=== PATIENT | male | born 1945 | race Caucasian/White ===

== ENCOUNTER 2020-09-22 11:48 | Inpatient (IN) | payer MEDICARE, OTHER ==
[~2020-09-22] VITALS: Ht 162.6 cm; Wt 67.6 kg
[2020-09-22] MEDS ORDERED: IV NORMAL SALINE 1000 ML BAG IV ONE (12:00)
[2020-09-22] MEDS ORDERED: PANT40TA2 PO (12:48)
[2020-09-22] MEDS ORDERED: CRAN425C6 PO (12:48)
[2020-09-22] MEDS ORDERED: QUER1POW MC (12:48)
[2020-09-22] MEDS ORDERED: THIA100T74 PO (12:48)
[2020-09-22] MEDS ORDERED: MAGN400O6 PO (12:48)
[2020-09-22] MEDS ORDERED: ASPI81TA31 PO (12:48)
[2020-09-22] MEDS ORDERED: CLOP75TA15 PO (12:48)
[2020-09-22] MEDS ORDERED: OMEG-166 PO (12:48)
[2020-09-22] MEDS ORDERED: ATOR10TA PO (12:48)
[2020-09-22] MEDS ORDERED: NA P133E RC (12:48)
[2020-09-22] MEDS ORDERED: ASCO500P18 PO (12:48)
[2020-09-22] MEDS ORDERED: CHOL10002 PO (12:48)
[2020-09-22] MEDS ORDERED: MULT-594 PO (12:48)
[2020-09-22] MEDS ORDERED: HYDR-501 PO (12:48)
[2020-09-22] MEDS ORDERED: AMLO10TA59 PO (12:48)
[2020-09-22] MEDS ORDERED: LISI-603 PO (12:48)
[2020-09-22] MEDS ORDERED: DOCU-141 PO (12:48)
[2020-09-22] MEDS ORDERED: ACET-2154 PO (12:48)
[2020-09-22] MEDS ORDERED: CARV6.252 PO (12:48)
[2020-09-22] MEDS ORDERED: HYDR-4384 PO ×2 (12:48)
[2020-09-22] MEDS ORDERED: ACET-73 PO (12:48)
[2020-09-22 13:28] LABS: BASOPHILS % (AUTO) 0.2 % (0.0-2.0); EOSINOPHILS % (AUTO) 0.1 % (0.0-7.0); HEMATOCRIT 32.3 % (36.7-47.1); HEMOGLOBIN 10.1 g/dL (12.5-16.3); LYMPHOCYTES # (AUTO) 0.9 K/uL (20.0-40.0); LYMPHOCYTES % (AUTO) 4.4 % (20.5-51.5); MEAN CORPUSCULAR HEMOGLOBIN 26.6 uug (23.8-33.4); MEAN CORPUSCULAR HGB CONC 31 g/dL (32.5-36.3); MEAN CORPUSCULAR VOLUME 85.6 fL (73.0-96.2); MONOCYTES # (AUTO) 1.1 K/uL (2.0-10.0); MONOCYTES % (AUTO) 5.1 % (0.0-11.0); NEUTROPHILS # (AUTO) 18.9 K/uL (1.8-8.9); NEUTROPHILS % (AUTO) 90.2 % (38.5-71.5); PLATELET COUNT (AUTO) 469 K/uL (152-348); RED BLOOD CELL COUNT(AUTO) 3.78 MIL/uL (4.06-5.63)
[2020-09-22] MEDS ORDERED: CEFTRIAXONE 2 G in IV DEXTROSE 5% 100 ML IV ONE (13:45)
[2020-09-22] MEDS ORDERED: AZITHROMYCIN IV 500 MG in IV DEXTROSE 5% 250 ML IV ONE (13:45)
[2020-09-22 13:53] LABS: CREATININE 0.9 mg/dL (0.6-1.3)
[2020-09-22 13:57] LABS: BILIRUBIN,DIRECT 0.2 mg/dL (0.0-0.2); BILIRUBIN,TOTAL 0.3 mg/dL (0.2-1.0); TOTAL PROTEIN, SERUM 8.1 g/dL (6.4-8.2)
[2020-09-22] MEDS ORDERED: DEXAMETHASONE SOD PHOSPHATE 4 MG INJ IV ONE (14:00)
--- NOTE | 2020-09-22 14:05 | NUR ---
ATTEMPTED TO PLACE NG TUBE WAS NOT ABLE TO GET IN. PATIENT AWAKE AND ALERT. TOLERATED PROCEDURE. DR ANGEL MADE AWARE.
[2020-09-22] MEDS ORDERED: DEXAMETHASONE SOD PHOSPHATE 10 MG INJ ONE (14:18)
[2020-09-22] MEDS ORDERED: AZITHROMYCIN 500MG/ D5W 250ML IVPB **ER PYXIS ONLY IV ONE (14:19)
[2020-09-22] MEDS ORDERED: ONDANSETRON 4 MG/2 ML VIAL IV PRN (15:15)
[2020-09-22] MEDS ORDERED: ACETAMINOPHEN 650 MG SUPP.RECT RC PRN (15:15)
[2020-09-22] MEDS ORDERED: ONDANSETRON ODT 4 MG TAB.RAPDIS SL PRN (15:15)
[2020-09-22] MEDS ORDERED: ALBUTEROL SULFATE 8 GM HFA.AER.AD IH PRN (15:15)
[2020-09-22] MEDS ORDERED: IV NS 1000 ML 1,000 ML IV PRN (15:30)
[2020-09-22] MEDS ORDERED: VANCOMYCIN IV 1,000 MG in IV DEXTROSE 5% 250 ML IV ONE (19:30)
--- NOTE | 2020-09-22 19:38 | NUR ---
CALLED FLOOR SPOKE WITH NURSE ANGÉLICA ROOM NOT AVAILABLE WILL CALL WHEN READY.
--- NOTE | 2020-09-22 21:05 | NUR ---
CALLED MACHINE ASSISTANT VIVIANE FOR ASSISTANCE ON TRANSFER PATIENT TO TELE FLOOR.
--- NOTE | 2020-09-22 21:15 | NUR ---
Pt. admitted to [facility] , under care of [facility], Brenda Reyna, ROTARY FURNACE TENDER [employer] completed
[2020-09-22 21:20] VITALS: BP 122/58
--- NOTE | 2020-09-22 21:20 | NUR ---
RECEIVED PT FROM ER VIA GURNEY. PT IN NO ACUTE DISTRESS. IV INTACT. SAFETY AND COMFORT PROVIDED.INTERMEDIATE ASSESSMENT DONE. NO OPEN WOUND FOR THE PT . BUT PT HAS REDNESS,SCRATCH ON PELVIC AREA. PT ON 15L NONREBREATHER MASK. ASSESSMENT PROCESS AND CARE PLAN INITIATED. SAFETY AND COMFORT PROVIDED. WILL CONTINUE TO MONITOR.
[2020-09-22] MEDS ORDERED: ALBUMIN HUMAN 5% 250 ML IV ONE (22:15)
[2020-09-22] MEDS ORDERED: PIPERACILLIN/TAZOBACTAM/D5W 50 ML IV ONE (23:09)
[2020-09-22] MEDS ORDERED: ALBUMIN HUMAN 5% 250 ML ONE (23:11)
[2020-09-23] VITALS: BP 101/71
--- NOTE | 2020-09-23 01:00 | NUR ---
ZOSYN MEDICATION GOT FROM PSYCH SPECIALIST BUT PENDING IN EMAR SO I DIDN'T GIVE IT. WILL NOTIFY INCOMING NURSE AND PHARMACIST.
[2020-09-23 04:30] VITALS: BP 105/71
--- NOTE | 2020-09-23 06:53 | NUR ---
PT SLEPT INTERMITTENTLY. PT IN NO ACUTE DISTRESS. PT IN SINUS RHYTHM. PT ON NONREBREATHER MASK FOR 15L. PT TURNED AND REPOSITIONED. PRESCRIBED MEDICATION GIVEN AND PT TOLERATED IT WELL. SAFETY AND COMFORT PROVIDED. WILL ENDORSE TO INCOMING NURSE FOR CONTINUITY OF CARE
[2020-09-23 07:08] LABS: BASOPHILS % (AUTO) 0.1 % (0.0-2.0); HEMATOCRIT 30.1 % (36.7-47.1); HEMOGLOBIN 9.6 g/dL (12.5-16.3); LYMPHOCYTES # (AUTO) 1.4 K/uL (20.0-40.0); LYMPHOCYTES % (AUTO) 9.5 % (20.5-51.5); MEAN CORPUSCULAR HEMOGLOBIN 27.4 uug (23.8-33.4); MEAN CORPUSCULAR HGB CONC 32 g/dL (32.5-36.3); MEAN CORPUSCULAR VOLUME 86.1 fL (73.0-96.2); MONOCYTES # (AUTO) 0.4 K/uL (2.0-10.0); MONOCYTES % (AUTO) 2.7 % (0.0-11.0); NEUTROPHILS # (AUTO) 13.4 K/uL (1.8-8.9); NEUTROPHILS % (AUTO) 87.7 % (38.5-71.5); PLATELET COUNT (AUTO) 386 K/uL (152-348); RED BLOOD CELL COUNT(AUTO) 3.49 MIL/uL (4.06-5.63); WHITE BLOOD COUNT (AUTO) 15.3 K/uL (3.6-10.2)
--- NOTE | 2020-09-23 07:20 | NUR ---
Called pharmacy for zosyn of the pt. Zosyn iv was given by clothing room supervisor and when i was about to scanEMAR shows pending so I didn"t give it. endorse to incoming nurse.
[2020-09-23] MEDS ORDERED: ALBUTEROL SULFATE 2.5 MG/3 ML NEBU NEB PRN (07:30)
--- NOTE | 2020-09-23 07:45 | NUR ---
RECEIVED PATIENT AWAKE IN BED. PATIENT ON 15L NON-REBREATHER. IV ON RIGHT HAND 22G PATENT AND INTACT. PATIENT IN NO ACUTE DISTRESS AT THE MOMENT. SINUS RHYTHM ON THE TELE MONITOR. SAFETY PRECAUTIONS IN PLACE. WILL CONTINUE TO MONITOR
[2020-09-23 08:08] LABS: BILIRUBIN,TOTAL 0.3 mg/dL (0.2-1.0); CREATININE 0.8 mg/dL (0.6-1.3); POTASSIUM 4.3 mmol/L (3.5-5.1); TOTAL PROTEIN, SERUM 7.6 g/dL (6.4-8.2)
[2020-09-23 09:00] VITALS: BP 106/68
[2020-09-23] MEDS: AMLODIPINE 10 MG TABLET PO SCH (09:00)
[2020-09-23] MEDS ORDERED: PANTOPRAZOLE SODIUM 40 MG TABLET.DR PO SCH (09:00)
--- NOTE | 2020-09-23 09:00 | NUR ---
NORVASC HELD DUE TO PATIENTS BLOOD PRESSURE OF 106/68.
[2020-09-23] MEDS: PIPERACILLIN SODIUM/TAZOBACTAM 3.375 G in IV DEXTROSE 5% 50 ML IV SCH ×3 (09:37→19:51)
[2020-09-23] MEDS: CHOLECALCIFEROL 1,000 UNIT TABLET PO SCH (09:38)
[2020-09-23] MEDS: THIAMINE HCL 100 MG TABLET PO SCH (09:38)
[2020-09-23] MEDS: ASPIRIN 81 MG TAB.CHEW PO SCH (09:38)
[2020-09-23] MEDS: CARVEDILOL 6.25 MG TABLET PO SCH ×2 (09:38→17:15)
[2020-09-23] MEDS: PANTOPRAZOLE SODIUM 40 MG TABLET.DR PO SCH (09:38)
[2020-09-23] MEDS: CLOPIDOGREL 75 MG TABLET PO SCH (09:38)
[2020-09-23] MEDS: ASCORBIC ACID 500 MG TABLET PO SCH (09:39)
[2020-09-23] MEDS: DOCUSATE SODIUM 100 MG CAPSULE PO SCH ×2 (09:39→17:15)
[2020-09-23 10:29] LABS: *BILIRUBIN,URIN NEGATIVE (NEGATIVE); *BLOOD, URINE NEGATIVE (NEGATIVE); *CLARITY,URINE CLEAR (CLEAR); *COLOR,URINE YELLOW (YELLOW); *KETONES,URINE NEGATIVE (NEGATIVE); *UROBILINOGEN,URINE 0.2 E.U./dl (NORMAL); LEUKOCYTE ESTERASE ,URINE NEGATIVE (NEGATIVE); NITRITE, URINE NEGATIVE (NEGATIVE); PH,URINE 5.5 (5.0-8.0); UGLUCOSE NEGATIVE (NEGATIVE)
[2020-09-23 10:49] LABS: *URINE TOTAL PROTEIN RANDOM 65.2 mg/dL (<150/24HR)
[2020-09-23 11:00] VITALS: BP 104/69
--- NOTE | 2020-09-23 12:56 | NUR ---
JEREMÍAS MENON NOTIFIED OF PATIENT'S LOW ALBUMIN OF 1.6; ADVISED TO REPLENISH WITH ONE MORE BAG OF ALBUMIN.
--- NOTE | 2020-09-23 12:57 | NUR ---
PATIENT SATURATE 91% ON ROOM AIR, HOWEVER COMPLAINS OF SHORTNESS OF BREATH WITHOUT O2. FACE MASK UTILIZED AT 6L. ANALYTICAL LEAD [facility] NOTIFIED.
[2020-09-23] MEDS ORDERED: ALBUMIN HUMAN 5% 250 ML IV ONE (13:30)
[2020-09-23] MEDS ORDERED: ALBUMIN HUMAN 25% 50 ML IV ONE (14:00)
[2020-09-23] MEDS: AZITHROMYCIN IV 500 MG in IV DEXTROSE 5% 250 ML IV SCH (15:49)
[2020-09-23 16:00] VITALS: BP 108/69
[2020-09-23] MEDS: VANCOMYCIN IV 1,000 MG in IV DEXTROSE 5% 250 ML IV SCH (17:01)
--- NOTE | 2020-09-23 17:30 | NUR ---
ATTEMPTED TO COLLECT SPUTUM SAMPLE FROM PATIENT, HOWEVER PATIENT STATES HE IS UNABLE TO PRODUCE SPUTUM AT THE MOMENT. WILL ENDORSE TO ONCOMING SHIFT.
--- NOTE | 2020-09-23 18:46 | NUR ---
PATIENT STABLE THROUGHOUT SHIFT. TOLERATED MEDICATIONS WITHOUT COMPLICATIONS. VITAL SIGNS WITHIN NORMAL. O2 TITRATED DOWN TO 6L FACE MASK. PATIENT SATURATING AT 95%. SINUS RHYTHM ON THE MONITOR. NO DISTRESS NOTED. WILL ENDORSE TO ONCOMING SHIFT.
--- NOTE | 2020-09-23 19:30 | NUR ---
RECEIVED PT AWAKE,ALERT AND ORIENTEDX3. PT ON FACE MASK 6L. IV INTACT. PT ON HEART MONITOR AND SINUS RHYTHM PT TOLERATED IT WELL. PT IN NO ACUTE DISTRESS. SAFETY AND COMFORT PROVIDED. WILL CONTINUE TO MONITOR.
[2020-09-23 19:37] LABS: BACTERIA,URINE FEW /HPF (NONE SEEN); RBC,URINE 0-3 /HPF (0-3); SQUAMOUS EPITHELIAL CELL,UR NONE SEEN /HPF (NONE SEEN); URIC ACID CRYSTALS,URINE MODERATE /HPF (NONE SEEN); WBC,URINE 0-3 /HPF (0-3)
[2020-09-23 20:00] VITALS: BP 109/65
[2020-09-23] MEDS: ATORVASTATIN 10 MG TABLET PO SCH (20:15)
[2020-09-23] MEDS: ACETAMINOPHEN 325 MG TABLET PO PRN (20:28)
[2020-09-23] MEDS ORDERED: PIPERACILLIN SODIUM/TAZOBACTAM 3.375 G in IV DEXTROSE 5% 50 ML IV SCH (23:11)
[2020-09-24] VITALS: BP 112/62
[2020-09-24] MEDS: PIPERACILLIN SODIUM/TAZOBACTAM 3.375 G in IV DEXTROSE 5% 50 ML IV SCH ×4 (01:21→20:58)
[2020-09-24 04:00] VITALS: BP 104/68
[2020-09-24] MEDS: PANTOPRAZOLE SODIUM 40 MG TABLET.DR PO SCH (07:01)
[2020-09-24 07:56] LABS: CREATININE 0.8 mg/dL (0.6-1.3); PHOSPHOROUS 3.1 mg/dL (2.5-4.9); POTASSIUM 3.8 mmol/L (3.5-5.1)
[2020-09-24 08:07] LABS: BASOPHILS % (AUTO) 0.1 % (0.0-2.0); EOSINOPHILS % (AUTO) 0.2 % (0.0-7.0); HEMOGLOBIN 9.5 g/dL (12.5-16.3); LYMPHOCYTES # (AUTO) 1.5 K/uL (20.0-40.0); LYMPHOCYTES % (AUTO) 12.4 % (20.5-51.5); MEAN CORPUSCULAR HEMOGLOBIN 27.3 uug (23.8-33.4); MEAN CORPUSCULAR HGB CONC 32 g/dL (32.5-36.3); MEAN CORPUSCULAR VOLUME 86.3 fL (73.0-96.2); MONOCYTES # (AUTO) 0.7 K/uL (2.0-10.0); NEUTROPHILS # (AUTO) 9.9 K/uL (1.8-8.9); NEUTROPHILS % (AUTO) 81.3 % (38.5-71.5); PLATELET COUNT (AUTO) 374 K/uL (152-348); RED BLOOD CELL COUNT(AUTO) 3.47 MIL/uL (4.06-5.63); WHITE BLOOD COUNT (AUTO) 12.2 K/uL (3.6-10.2)
--- NOTE | 2020-09-24 08:11 | NUR ---
PT SLEPT INTERMITTENTLY. PT IN NO ACUTE DISTRESS. PRESCRIBED MEDICATION GIVEN AND PT TOLERATED IT WELL. TYLENOL PRN GIVEN PT REQUEST . IV INTACT. PT ON NONREBREATHER MASK. PT TURNED AND REPOSITIONED. SAFETY AND COMFORT PROVIDED. WILL ENDORSE TO INCOMING NURSE FOR CONTINUITY OF CARE.
[2020-09-24] MEDS: CHOLECALCIFEROL 1,000 UNIT TABLET PO SCH (09:00)
[2020-09-24] MEDS: AMLODIPINE 10 MG TABLET PO SCH (09:00)
[2020-09-24] MEDS: ASCORBIC ACID 500 MG TABLET PO SCH (09:00)
[2020-09-24] MEDS: CARVEDILOL 6.25 MG TABLET PO SCH ×2 (09:00→17:00)
[2020-09-24] MEDS: CLOPIDOGREL 75 MG TABLET PO SCH (09:00)
[2020-09-24] MEDS: ASPIRIN 81 MG TAB.CHEW PO SCH (09:00)
[2020-09-24] MEDS: DOCUSATE SODIUM 100 MG CAPSULE PO SCH ×2 (09:00→16:49)
[2020-09-24] MEDS: THIAMINE HCL 100 MG TABLET PO SCH (09:00)
[2020-09-24 10:11] LABS: ABG HCO3 20.7 mmol/L; ABG PCO2 31.9 mmHg (35.0-45.0); ABG PH 7.429 (7.350-7.450); ABG SITE RIGHT RADIAL; ABG TOTAL HEMOGLOBIN 10.3 G/dL (13.5-18.0); COHb 0.8 % (0.5-1.5); MetHb 0.3 % (0.0-1.5); O2Hb 97.2 % (94.0-97.0)
[2020-09-24 11:16] VITALS: BP 111/71
[2020-09-24] MEDS: VANCOMYCIN IV 1,000 MG in IV DEXTROSE 5% 250 ML IV SCH (12:53)
[2020-09-24 15:42] VITALS: BP 115/72
[2020-09-24] MEDS: AZITHROMYCIN IV 500 MG in IV DEXTROSE 5% 250 ML IV SCH (16:39)
[2020-09-24 20:00] VITALS: BP 104/63
[2020-09-24] MEDS: ATORVASTATIN 10 MG TABLET PO SCH (21:12)
[2020-09-25] VITALS: BP 103/61
[2020-09-25] MEDS: PIPERACILLIN SODIUM/TAZOBACTAM 3.375 G in IV DEXTROSE 5% 50 ML IV SCH ×4 (02:21→20:59)
[2020-09-25 04:00] VITALS: BP 101/73
--- NOTE | 2020-09-25 06:00 | NUR ---
Awaiting vanco through levels prior to administration. Called lab and notified that no one was available to draw and awaiting for inkjet operator to arrive for morning labs. Will attempt to draw prior
[2020-09-25] MEDS: PANTOPRAZOLE SODIUM 40 MG TABLET.DR PO SCH (06:58)
--- NOTE | 2020-09-25 07:30 | NUR ---
Received patient resting in bed awake and alert. No sign of distress noted. Patient denies any pain. Safety precautions in place with call light an belongings within reach. Will continue to monitor.
[2020-09-25] MEDS: AMLODIPINE 10 MG TABLET PO SCH (09:00)
[2020-09-25] MEDS: CARVEDILOL 6.25 MG TABLET PO SCH ×2 (09:00→17:07)
[2020-09-25] MEDS: ASPIRIN 81 MG TAB.CHEW PO SCH (10:03)
[2020-09-25] MEDS: DOCUSATE SODIUM 100 MG CAPSULE PO SCH ×2 (10:03→17:04)
[2020-09-25] MEDS: CHOLECALCIFEROL 1,000 UNIT TABLET PO SCH (10:04)
[2020-09-25] MEDS: ASCORBIC ACID 500 MG TABLET PO SCH (10:04)
[2020-09-25] MEDS: CLOPIDOGREL 75 MG TABLET PO SCH (10:04)
[2020-09-25] MEDS: THIAMINE HCL 100 MG TABLET PO SCH (10:04)
[2020-09-25 11:00] VITALS: BP 151/77
[2020-09-25] MEDS ORDERED: ALBUTEROL SULFATE 2.5 MG/3 ML NEBU NEB SCH (13:00)
[2020-09-25 14:04] LABS: BASOPHILS % (AUTO) 0.1 % (0.0-2.0); EOSINOPHILS # (AUTO) 0.1 K/uL (0.0-0.7); EOSINOPHILS % (AUTO) 1.6 % (0.0-7.0); HEMATOCRIT 32.6 % (36.7-47.1); HEMOGLOBIN 10.5 g/dL (12.5-16.3); LYMPHOCYTES # (AUTO) 2.3 K/uL (20.0-40.0); LYMPHOCYTES % (AUTO) 25.4 % (20.5-51.5); MEAN CORPUSCULAR HEMOGLOBIN 27.2 uug (23.8-33.4); MEAN CORPUSCULAR HGB CONC 32 g/dL (32.5-36.3); MEAN CORPUSCULAR VOLUME 84.1 fL (73.0-96.2); MONOCYTES # (AUTO) 0.6 K/uL (2.0-10.0); MONOCYTES % (AUTO) 6.7 % (0.0-11.0); NEUTROPHILS # (AUTO) 6.1 K/uL (1.8-8.9); NEUTROPHILS % (AUTO) 66.2 % (38.5-71.5); PLATELET COUNT (AUTO) 413 K/uL (152-348); RED BLOOD CELL COUNT(AUTO) 3.88 MIL/uL (4.06-5.63); WHITE BLOOD COUNT (AUTO) 9.2 K/uL (3.6-10.2)
[2020-09-25 14:08] LABS: CREATININE 0.7 mg/dL (0.6-1.3); PHOSPHOROUS 3.7 mg/dL (2.5-4.9); POTASSIUM 3.5 mmol/L (3.5-5.1)
[2020-09-25] MEDS: VANCOMYCIN IV 750 MG in IV DEXTROSE 5% 250 ML IV SCH (15:45)
[2020-09-25 16:09] VITALS: BP 153/98
[2020-09-25] MEDS: AZITHROMYCIN IV 500 MG in IV DEXTROSE 5% 250 ML IV SCH (17:04)
[2020-09-25 20:00] VITALS: BP 127/73
--- NOTE | 2020-09-25 20:08 | NUR ---
Patient is resting in bed. All medications given as ordered. Safety precautions in place with call light and belongings within reach. Will endorse to oncoming nurse.
[2020-09-25] MEDS: ALBUTEROL SULFATE 2.5 MG/3 ML NEBU NEB SCH (23:10)
[2020-09-25] MEDS: ATORVASTATIN 10 MG TABLET PO SCH (23:17)
[2020-09-26 00:55] VITALS: BP 147/78
[2020-09-26] MEDS: PIPERACILLIN SODIUM/TAZOBACTAM 3.375 G in IV DEXTROSE 5% 50 ML IV SCH ×4 (01:57→20:14)
[2020-09-26] MEDS: VANCOMYCIN IV 750 MG in IV DEXTROSE 5% 250 ML IV SCH ×2 (03:04→14:59)
[2020-09-26 04:00] VITALS: BP 144/75
[2020-09-26] MEDS: PANTOPRAZOLE SODIUM 40 MG TABLET.DR PO SCH (07:15)
[2020-09-26] MEDS: ALBUTEROL SULFATE 2.5 MG/3 ML NEBU NEB SCH ×2 (09:42→15:26)
[2020-09-26 10:25] LABS: CREATININE 0.8 mg/dL (0.6-1.3); POTASSIUM 3.3 mmol/L (3.5-5.1)
[2020-09-26] MEDS: CHOLECALCIFEROL 1,000 UNIT TABLET PO SCH (10:25)
[2020-09-26] MEDS: CLOPIDOGREL 75 MG TABLET PO SCH (10:26)
[2020-09-26] MEDS: ASCORBIC ACID 500 MG TABLET PO SCH (10:26)
[2020-09-26] MEDS: DOCUSATE SODIUM 100 MG CAPSULE PO SCH ×2 (10:26→17:25)
[2020-09-26] MEDS: AMLODIPINE 10 MG TABLET PO SCH (10:26)
[2020-09-26] MEDS: THIAMINE HCL 100 MG TABLET PO SCH (10:27)
[2020-09-26] MEDS: CARVEDILOL 6.25 MG TABLET PO SCH ×2 (10:28→17:00)
[2020-09-26] MEDS: ASPIRIN 81 MG TAB.CHEW PO SCH (10:29)
[2020-09-26] MEDS ORDERED: POTASSIUM CHLORIDE 20 MEQ TAB.PRT.SR PO ONE (11:15)
[2020-09-26 11:19] VITALS: BP 94/56
[2020-09-26] MEDS: AZITHROMYCIN IV 500 MG in IV DEXTROSE 5% 250 ML IV SCH (14:54)
[2020-09-26 15:24] VITALS: BP 105/62
--- NOTE | 2020-09-26 19:30 | NUR ---
Received pt asleep and in bed. Pt is on 3L NC. Does not appear to have respiratory distress at this time. No acute distress noted. IV is infiltrated upon assessment and was taken out. New one will be inserted. No other issues or concerns at this time.
[2020-09-26] MEDS: ATORVASTATIN 10 MG TABLET PO SCH (20:14)
[2020-09-26 20:42] VITALS: BP 120/73
[2020-09-27] MEDS: ALBUTEROL SULFATE 2.5 MG/3 ML NEBU NEB SCH ×4 (00:30→23:16)
[2020-09-27 00:38] VITALS: BP 134/68
[2020-09-27] MEDS: PIPERACILLIN SODIUM/TAZOBACTAM 3.375 G in IV DEXTROSE 5% 50 ML IV SCH ×4 (02:13→20:44)
[2020-09-27] MEDS: VANCOMYCIN IV 750 MG in IV DEXTROSE 5% 250 ML IV SCH (03:03)
[2020-09-27 04:50] VITALS: BP 91/58
[2020-09-27] MEDS: PANTOPRAZOLE SODIUM 40 MG TABLET.DR PO SCH (06:24)
--- NOTE | 2020-09-27 06:49 | NUR ---
Pt slept throughout the night with no complaints. Denies SOB or pain at this time. On 3L NC. Safety and comfort provided. No other issues or concerns at this time. Will endorse to day shift.
[2020-09-27 07:51] LABS: BASOPHILS % (AUTO) 0.2 % (0.0-2.0); EOSINOPHILS # (AUTO) 0.2 K/uL (0.0-0.7); EOSINOPHILS % (AUTO) 2.2 % (0.0-7.0); HEMATOCRIT 31.2 % (36.7-47.1); HEMOGLOBIN 10.1 g/dL (12.5-16.3); LYMPHOCYTES % (AUTO) 19.8 % (20.5-51.5); MEAN CORPUSCULAR HEMOGLOBIN 28.1 uug (23.8-33.4); MEAN CORPUSCULAR HGB CONC 33 g/dL (32.5-36.3); MEAN CORPUSCULAR VOLUME 86.5 fL (73.0-96.2); MONOCYTES # (AUTO) 0.7 K/uL (2.0-10.0); MONOCYTES % (AUTO) 7.4 % (0.0-11.0); NEUTROPHILS # (AUTO) 7.1 K/uL (1.8-8.9); NEUTROPHILS % (AUTO) 70.4 % (38.5-71.5); PLATELET COUNT (AUTO) 359 K/uL (152-348); WHITE BLOOD COUNT (AUTO) 10.1 K/uL (3.6-10.2)
[2020-09-27 07:56] LABS: CREATININE 0.9 mg/dL (0.6-1.3); POTASSIUM 3.3 mmol/L (3.5-5.1)
[2020-09-27] MEDS: ASPIRIN 81 MG TAB.CHEW PO SCH (08:31)
[2020-09-27] MEDS: DOCUSATE SODIUM 100 MG CAPSULE PO SCH ×2 (08:31→17:34)
[2020-09-27] MEDS: CHOLECALCIFEROL 1,000 UNIT TABLET PO SCH (08:37)
[2020-09-27] MEDS: ASCORBIC ACID 500 MG TABLET PO SCH (08:37)
[2020-09-27] MEDS: CARVEDILOL 6.25 MG TABLET PO SCH ×2 (08:41→17:35)
[2020-09-27] MEDS: CLOPIDOGREL 75 MG TABLET PO SCH (08:41)
[2020-09-27] MEDS: THIAMINE HCL 100 MG TABLET PO SCH (08:42)
[2020-09-27] MEDS: AMLODIPINE 10 MG TABLET PO SCH (08:42)
--- NOTE | 2020-09-27 09:30 | NUR ---
RT not avail for tx
[2020-09-27] MEDS ORDERED: POTASSIUM CHLORIDE 20 MEQ TAB.PRT.SR PO ONE (10:00)
[2020-09-27 12:00] VITALS: BP 107/70
[2020-09-27] MEDS ORDERED: POTASSIUM CHLORIDE 20 MEQ POWDER PACKET PO ONE (12:15)
[2020-09-27] MEDS: AZITHROMYCIN 250 MG TABLET PO SCH (14:57)
[2020-09-27 16:00] VITALS: BP 114/73
[2020-09-27] MEDS: VANCOMYCIN IV 1,000 MG in IV DEXTROSE 5% 250 ML IV SCH (17:27)
[2020-09-27] MEDS: HYDROCODONE/APAP 5-325MG TABLET PO PRN (18:53)
[2020-09-27 20:00] VITALS: BP 108/69
[2020-09-27] MEDS: ATORVASTATIN 10 MG TABLET PO SCH (20:43)
[2020-09-28 00:08] VITALS: BP 100/63
[2020-09-28] MEDS: PIPERACILLIN SODIUM/TAZOBACTAM 3.375 G in IV DEXTROSE 5% 50 ML IV SCH ×4 (01:15→21:29)
[2020-09-28 04:15] VITALS: BP 99/57
[2020-09-28] MEDS: VANCOMYCIN IV 1,000 MG in IV DEXTROSE 5% 250 ML IV SCH ×2 (04:39→16:30)
[2020-09-28] MEDS: HYDROCODONE/APAP 5-325MG TABLET PO PRN (04:46)
--- NOTE | 2020-09-28 05:00 | NUR ---
PATIENT IS IN BED, ALERT AND VERBALLY RESPONSIVE. PATIENT SLEPT INTERMITTENTLY DURING THE NIGHT. PATIENT REMAINED AFEBRILE DURING SHIFT. RECEIVED IV ATB THERAPY, TOLERATED WELL. NO ADVERSE SIDE EFFECTS NOTED DUE TO ATB THERAPY. WILL CONTINUE TO MONITOR PATIENT.
[2020-09-28] MEDS: PANTOPRAZOLE SODIUM 40 MG TABLET.DR PO SCH (06:10)
[2020-09-28 06:37] LABS: CREATININE 0.9 mg/dL (0.6-1.3); POTASSIUM 3.4 mmol/L (3.5-5.1)
[2020-09-28] MEDS: ALBUTEROL SULFATE 2.5 MG/3 ML NEBU NEB SCH ×3 (08:05→23:21)
[2020-09-28] MEDS: ASPIRIN 81 MG TAB.CHEW PO SCH (10:03)
[2020-09-28] MEDS: DOCUSATE SODIUM 100 MG CAPSULE PO SCH ×2 (10:03→17:59)
[2020-09-28] MEDS: ASCORBIC ACID 500 MG TABLET PO SCH (10:03)
[2020-09-28] MEDS: THIAMINE HCL 100 MG TABLET PO SCH (10:03)
[2020-09-28] MEDS: AMLODIPINE 10 MG TABLET PO SCH (10:04)
[2020-09-28] MEDS: CHOLECALCIFEROL 1,000 UNIT TABLET PO SCH (10:04)
[2020-09-28] MEDS: CARVEDILOL 6.25 MG TABLET PO SCH ×2 (10:04→17:59)
[2020-09-28] MEDS ORDERED: POTASSIUM CHLORIDE 20 MEQ POWDER PACKET PO SCH (11:45)
[2020-09-28 12:05] VITALS: BP 112/64
[2020-09-28] MEDS: ACETAMINOPHEN 325 MG TABLET PO PRN (12:10)
[2020-09-28] MEDS: CLOPIDOGREL 75 MG TABLET PO SCH (12:45)
[2020-09-28] MEDS: AZITHROMYCIN 250 MG TABLET PO SCH (15:10)
[2020-09-28 17:08] VITALS: BP 107/64
--- NOTE | 2020-09-28 19:29 | NUR ---
Handoff with FRANCISCO German. Jostin Avelar RN
[2020-09-28 20:00] VITALS: BP 105/59
[2020-09-28] MEDS: ATORVASTATIN 10 MG TABLET PO SCH (21:29)
[2020-09-29] MEDS: PIPERACILLIN SODIUM/TAZOBACTAM 3.375 G in IV DEXTROSE 5% 50 ML IV SCH ×4 (01:16→20:38)
[2020-09-29 01:18] VITALS: BP 130/74
[2020-09-29 04:00] VITALS: BP 133/85
[2020-09-29] MEDS: PANTOPRAZOLE SODIUM 40 MG TABLET.DR PO SCH (06:25)
--- NOTE | 2020-09-29 06:48 | NUR ---
Awake alert and oriented x1. Needs attended. Patient incontinent of bowel and bladder. Kept clean and dry. Patient having periods of diarrhea. Kept clean and dry. VSS. Tolerated po meds well. Kept comfortable. Will relay to dayshift nurse re: diarrhea.
[2020-09-29 07:49] LABS: BASOPHILS # (AUTO) 0.3 K/uL (0.0-8.0); EOSINOPHILS # (AUTO) 0.5 K/uL (0.0-0.7); EOSINOPHILS % (AUTO) 4.1 % (0.0-7.0); HEMATOCRIT 33.1 % (36.7-47.1); HEMOGLOBIN 10.6 g/dL (12.5-16.3); LYMPHOCYTES # (AUTO) 1.7 K/uL (20.0-40.0); LYMPHOCYTES % (AUTO) 13.7 % (20.5-51.5); MEAN CORPUSCULAR HEMOGLOBIN 27.5 uug (23.8-33.4); MEAN CORPUSCULAR HGB CONC 32 g/dL (32.5-36.3); MEAN CORPUSCULAR VOLUME 86.2 fL (73.0-96.2); MONOCYTES # (AUTO) 0.8 K/uL (2.0-10.0); MONOCYTES % (AUTO) 6.3 % (0.0-11.0); NEUTROPHILS # (AUTO) 9.3 K/uL (1.8-8.9); NEUTROPHILS % (AUTO) 73.9 % (38.5-71.5); PLATELET COUNT (AUTO) 369 K/uL (152-348); RED BLOOD CELL COUNT(AUTO) 3.84 MIL/uL (4.06-5.63); WHITE BLOOD COUNT (AUTO) 12.5 K/uL (3.6-10.2)
[2020-09-29 07:52] LABS: CREATININE 0.9 mg/dL (0.6-1.3); POTASSIUM 4.1 mmol/L (3.5-5.1)
[2020-09-29] MEDS: CARVEDILOL 6.25 MG TABLET PO SCH ×2 (08:26→16:11)
[2020-09-29] MEDS: CHOLECALCIFEROL 1,000 UNIT TABLET PO SCH (08:26)
[2020-09-29] MEDS: ASPIRIN 81 MG TAB.CHEW PO SCH (08:26)
[2020-09-29] MEDS: THIAMINE HCL 100 MG TABLET PO SCH (08:26)
[2020-09-29] MEDS: DOCUSATE SODIUM 100 MG CAPSULE PO SCH ×2 (08:26→16:11)
[2020-09-29] MEDS: CLOPIDOGREL 75 MG TABLET PO SCH (08:26)
[2020-09-29] MEDS: ASCORBIC ACID 500 MG TABLET PO SCH (08:26)
[2020-09-29] MEDS: AMLODIPINE 10 MG TABLET PO SCH (08:26)
[2020-09-29] MEDS: ALBUTEROL SULFATE 2.5 MG/3 ML NEBU NEB SCH ×3 (08:41→23:35)
[2020-09-29 11:00] VITALS: BP 120/75
[2020-09-29 16:00] VITALS: BP 115/71
[2020-09-29 20:30] VITALS: BP 130/78
[2020-09-29] MEDS: HYDROCODONE/APAP 5-325MG TABLET PO PRN (20:38)
[2020-09-29] MEDS: ATORVASTATIN 10 MG TABLET PO SCH (20:38)
--- NOTE | 2020-09-29 22:30 | NUR ---
Received pt complain of pain 7/10 in right arm. Administered Marion PRN, effective. Pt is axo x3,Able to make needs known. No acute distress, no SOB noted, resting in bed. VSS, On room air Saturating at 90%, put 2L NC saturating 96%. IV LFA patent and intact running antibiotics, tolerating well. Safety measures maintained. Call light and all personal items within pt reach. Will continue to monitor.
[2020-09-30] MEDS: PIPERACILLIN SODIUM/TAZOBACTAM 3.375 G in IV DEXTROSE 5% 50 ML IV SCH ×2 (02:15→07:57)
[2020-09-30] MEDS: PANTOPRAZOLE SODIUM 40 MG TABLET.DR PO SCH (06:47)
[2020-09-30 07:07] LABS: POTASSIUM 3.7 mmol/L (3.5-5.1)
[2020-09-30 07:13] LABS: BASOPHILS # (AUTO) 0.1 K/uL (0.0-8.0); BASOPHILS % (AUTO) 0.6 % (0.0-2.0); EOSINOPHILS # (AUTO) 0.5 K/uL (0.0-0.7); EOSINOPHILS % (AUTO) 3.9 % (0.0-7.0); HEMATOCRIT 32.3 % (36.7-47.1); HEMOGLOBIN 10.3 g/dL (12.5-16.3); LYMPHOCYTES # (AUTO) 2.4 K/uL (20.0-40.0); LYMPHOCYTES % (AUTO) 20.6 % (20.5-51.5); MEAN CORPUSCULAR HEMOGLOBIN 27.6 uug (23.8-33.4); MEAN CORPUSCULAR HGB CONC 32 g/dL (32.5-36.3); MEAN CORPUSCULAR VOLUME 86.4 fL (73.0-96.2); MONOCYTES % (AUTO) 8.6 % (0.0-11.0); NEUTROPHILS # (AUTO) 7.8 K/uL (1.8-8.9); NEUTROPHILS % (AUTO) 66.3 % (38.5-71.5); PLATELET COUNT (AUTO) 362 K/uL (152-348); RED BLOOD CELL COUNT(AUTO) 3.74 MIL/uL (4.06-5.63); WHITE BLOOD COUNT (AUTO) 11.9 K/uL (3.6-10.2)
[2020-09-30] MEDS: ALBUTEROL SULFATE 2.5 MG/3 ML NEBU NEB SCH ×3 (07:41→22:30)
[2020-09-30 08:00] VITALS: BP 167/46
[2020-09-30] MEDS: ASPIRIN 81 MG TAB.CHEW PO SCH (08:02)
[2020-09-30] MEDS: DOCUSATE SODIUM 100 MG CAPSULE PO SCH ×2 (08:03→16:25)
[2020-09-30] MEDS: ASCORBIC ACID 500 MG TABLET PO SCH (08:03)
[2020-09-30] MEDS: THIAMINE HCL 100 MG TABLET PO SCH (08:03)
[2020-09-30] MEDS: CLOPIDOGREL 75 MG TABLET PO SCH (08:03)
[2020-09-30] MEDS: CHOLECALCIFEROL 1,000 UNIT TABLET PO SCH (08:03)
[2020-09-30] MEDS: AMLODIPINE 10 MG TABLET PO SCH (08:03)
[2020-09-30] MEDS: CARVEDILOL 6.25 MG TABLET PO SCH ×2 (08:03→16:25)
[2020-09-30 11:00] VITALS: BP 143/77
[2020-09-30 15:28] VITALS: BP 120/73
[2020-09-30] MEDS ORDERED: PIPERACILLIN SODIUM/TAZOBACTAM 3.37 G in IV DEXTROSE 5% 100 ML IV SCH (16:00)
[2020-09-30 20:30] VITALS: BP 116/77
[2020-09-30] MEDS: ATORVASTATIN 10 MG TABLET PO SCH (21:14)
--- NOTE | 2020-09-30 21:30 | NUR ---
Received pt asleep and in bed. Pt is on 2L NC. No acute distress, no SOB noted. VSS, able to make needs known. All due medication administered, tolerated well. Aspiration precaution maintained. All need attended too, kept comfortable. Safety measure maintained. Call light and all personal belongings in place. Will continue plan of care.
[2020-10-01 04:35] VITALS: BP 113/75
[2020-10-01 06:05] LABS: BASOPHILS # (AUTO) 0.1 K/uL (0.0-8.0); BASOPHILS % (AUTO) 0.7 % (0.0-2.0); EOSINOPHILS # (AUTO) 0.4 K/uL (0.0-0.7); EOSINOPHILS % (AUTO) 3.4 % (0.0-7.0); HEMATOCRIT 32.7 % (36.7-47.1); HEMOGLOBIN 10.6 g/dL (12.5-16.3); LYMPHOCYTES # (AUTO) 2.1 K/uL (20.0-40.0); LYMPHOCYTES % (AUTO) 19.7 % (20.5-51.5); MEAN CORPUSCULAR HEMOGLOBIN 27.9 uug (23.8-33.4); MEAN CORPUSCULAR HGB CONC 32 g/dL (32.5-36.3); MEAN CORPUSCULAR VOLUME 86.2 fL (73.0-96.2); MONOCYTES % (AUTO) 9.1 % (0.0-11.0); NEUTROPHILS # (AUTO) 7.1 K/uL (1.8-8.9); NEUTROPHILS % (AUTO) 67.1 % (38.5-71.5); PLATELET COUNT (AUTO) 358 K/uL (152-348); RED BLOOD CELL COUNT(AUTO) 3.79 MIL/uL (4.06-5.63); WHITE BLOOD COUNT (AUTO) 10.6 K/uL (3.6-10.2)
[2020-10-01] MEDS: PANTOPRAZOLE SODIUM 40 MG TABLET.DR PO SCH (06:06)
[2020-10-01] MEDS: ALBUTEROL SULFATE 2.5 MG/3 ML NEBU NEB SCH ×3 (07:22→22:59)
[2020-10-01] MEDS: ASPIRIN 81 MG TAB.CHEW PO SCH (08:21)
[2020-10-01] MEDS: CHOLECALCIFEROL 1,000 UNIT TABLET PO SCH (08:21)
[2020-10-01] MEDS: DOCUSATE SODIUM 100 MG CAPSULE PO SCH ×2 (08:21→16:15)
[2020-10-01] MEDS: CARVEDILOL 6.25 MG TABLET PO SCH ×2 (08:22→16:16)
[2020-10-01] MEDS: AMLODIPINE 10 MG TABLET PO SCH (08:22)
[2020-10-01] MEDS: CLOPIDOGREL 75 MG TABLET PO SCH (08:22)
[2020-10-01] MEDS: THIAMINE HCL 100 MG TABLET PO SCH (08:22)
[2020-10-01] MEDS: ASCORBIC ACID 500 MG TABLET PO SCH (08:22)
[2020-10-01 11:41] VITALS: BP 111/77
[2020-10-01 16:00] VITALS: BP 111/71
[2020-10-01] MEDS: HYDROCODONE/APAP 5-325MG TABLET PO PRN (20:53)
[2020-10-01] MEDS: ATORVASTATIN 10 MG TABLET PO SCH (20:53)
[2020-10-01 21:12] VITALS: BP 97/65
--- NOTE | 2020-10-01 22:58 | NUR ---
Received pt resting in bed. AAO x3. On 2L O2 via NC, no acute distress noted. Complaint of 7/10 generalized pain. PRN pain med and other due med given as ordered, administered crushed with pudding. Aspiration precaution observed. Safety measures maintained. Call light and personal items within reach. Will continue to monitor.
[2020-10-02 05:32] VITALS: BP 124/75
[2020-10-02] MEDS: PANTOPRAZOLE SODIUM 40 MG TABLET.DR PO SCH (06:17)
[2020-10-02] MEDS: ALBUTEROL SULFATE 2.5 MG/3 ML NEBU NEB SCH ×2 (07:34→16:26)
[2020-10-02 09:00] VITALS: BP 97/61
[2020-10-02] MEDS: ASCORBIC ACID 500 MG TABLET PO SCH (09:13)
[2020-10-02] MEDS: THIAMINE HCL 100 MG TABLET PO SCH (09:13)
[2020-10-02] MEDS: CLOPIDOGREL 75 MG TABLET PO SCH (09:13)
[2020-10-02] MEDS: CHOLECALCIFEROL 1,000 UNIT TABLET PO SCH (09:13)
[2020-10-02] MEDS: DOCUSATE SODIUM 100 MG CAPSULE PO SCH ×2 (09:13→17:34)
[2020-10-02] MEDS: ASPIRIN 81 MG TAB.CHEW PO SCH (09:13)
[2020-10-02 09:28] LABS: BASOPHILS # (AUTO) 0.1 K/uL (0.0-8.0); BASOPHILS % (AUTO) 0.5 % (0.0-2.0); EOSINOPHILS # (AUTO) 0.4 K/uL (0.0-0.7); EOSINOPHILS % (AUTO) 3.2 % (0.0-7.0); HEMATOCRIT 31.8 % (36.7-47.1); HEMOGLOBIN 10.4 g/dL (12.5-16.3); LYMPHOCYTES # (AUTO) 2.6 K/uL (20.0-40.0); LYMPHOCYTES % (AUTO) 21.7 % (20.5-51.5); MEAN CORPUSCULAR HEMOGLOBIN 27.9 uug (23.8-33.4); MEAN CORPUSCULAR HGB CONC 33 g/dL (32.5-36.3); MEAN CORPUSCULAR VOLUME 85.2 fL (73.0-96.2); MONOCYTES # (AUTO) 0.9 K/uL (2.0-10.0); MONOCYTES % (AUTO) 7.8 % (0.0-11.0); NEUTROPHILS % (AUTO) 66.8 % (38.5-71.5); PLATELET COUNT (AUTO) 361 K/uL (152-348); RED BLOOD CELL COUNT(AUTO) 3.73 MIL/uL (4.06-5.63)
[2020-10-02 09:42] LABS: CREATININE 0.9 mg/dL (0.6-1.3); POTASSIUM 3.8 mmol/L (3.5-5.1)
[2020-10-02] MEDS: CARVEDILOL 6.25 MG TABLET PO SCH ×2 (10:11→17:00)
[2020-10-02] MEDS: AMLODIPINE 10 MG TABLET PO SCH (10:11)
[2020-10-02 11:53] VITALS: BP 111/71
--- NOTE | 2020-10-02 11:54 | NUR ---
RECEIVED PATIENT AWAKE, ALERT AND ORIENTED X 2-3. VSS. ON 2L NC, SATURATION WNL. ASPIRATION PRECAUTION IN PLACE. EXPLAINED TO PATIENT PURPOSE OF KEEPING HEAD OF BED ELEVATED 20-30 MINS AFTER MEALS, VERBALIZED UNDERSTANDING. SAFETY PRECAUTIONS IN PLACE. WILL CONTINUE TO MONITOR.
[2020-10-02] MEDS ORDERED: AMLO5TAB4 PO (16:22)
[2020-10-02] MEDS ORDERED: ALBU2.5V7 NEB (16:22)
[2020-10-02] MEDS ORDERED: PROT946L PO (16:26)
[2020-10-02 16:33] VITALS: BP 91/63
[2020-10-02 17:00] VITALS: BP 91/63
--- NOTE | 2020-10-02 19:58 | NUR ---
PATIENT SCHEDULED TO BE DISCHARGED BACK TO [facility]. REPORT GIVEN TO FRANCISCO ROQUE. IV REMOVED, NO S/S OF BLEEDING NOTED. BELONGINGS RETURNED. NO S/S OF DISTRESS OR SOB NOTED AT THIS TIME. REPORT GIVEN TO AMBULANCE PERSONNEL.
== END 2020-10-02 20:43 | DRG 871 ==
LOC: ER 11:48 → TELE3 21:07 → MEDSURG3 09-29 08:56
PROVIDERS: ADMIT Nurse Practitioner Acute Care; ATTEND Internal Medicine
PROC: 0W993ZX Drainage of Right Pleural Cavity, Percutaneous Approach, Diagnostic (ICD-10-PCS; principal; 2020-09-24)
DX: A41.9 Sepsis, unspecified organism (principal); J18.9 Pneumonia, unspecified organism; E43 Unspecified severe protein-calorie malnutrition; J96.01 Acute respiratory failure with hypoxia; N17.0 Acute kidney failure with tubular necrosis; J86.9 Pyothorax without fistula; D68.69 Other thrombophilia; J94.2 Hemothorax; J98.11 Atelectasis; I69.351 Hemiplegia and hemiparesis following cerebral infarction affecting right dominant side; J91.8 Pleural effusion in other conditions classified elsewhere; R65.20 Severe sepsis without septic shock; D63.8 Anemia in other chronic diseases classified elsewhere; E78.5 Hyperlipidemia, unspecified; E87.6 Hypokalemia; F32.9 Major depressive disorder, single episode, unspecified; N18.9 Chronic kidney disease, unspecified; Z20.828 Contact with and (suspected) exposure to other viral communicable diseases; I12.9 Hypertensive chronic kidney disease with stage 1 through stage 4 chronic kidney disease, or unspecified chronic kidney disease; E11.22 Type 2 diabetes mellitus with diabetic chronic kidney disease; E88.09 Other disorders of plasma-protein metabolism, not elsewhere classified; R13.10 Dysphagia, unspecified; K57.30 Diverticulosis of large intestine without perforation or abscess without bleeding; I25.9 Chronic ischemic heart disease, unspecified; Z68.25 Body mass index [BMI] 25.0-25.9, adult
CPT/HCPCS: 32555; 36415; 36600; 70030-TC; 71045; 71250; 83605; 83615; 83690; 83735; 83986; 84100; 84155; 84156; 84300; 85025; 85730; 86140; 87040; 87070; 87075; 87086; 87205; 87278; 93005; 94640; 94664; A4663; G0378; J0456; J0696; J1100; J2405; J2543; J3370; J3535; J7030; J7040; J7060; P9045; P9047; Q0144; U0003